=== PATIENT | male | born 1980 | race Caucasian/White ===

== ENCOUNTER → 2017-11-16 14:04 | Outpatient (CLI) | payer BC, SELFPAY | PROVIDERS: PCP Family Medicine; Visit Provider Nurse Practitioner | DX: R06.83 Snoring (principal); E66.9 Obesity, unspecified | CPT/HCPCS: 95806 ==

== ENCOUNTER → 2023-04-02 11:47 | Outpatient (CLI) | payer OTHER, SELFPAY ==
--- NOTE | 2023-04-02 11:51 | NM_ITS ---
APPROVED REPORT Exam: Nuclear Stress Test Indication: OBESITY, HTN, DM, TOB USE, C.P., SOB, PALPITATIONS, ABN EKG Patient Location: Outpatient Stress Tech: Gianna Calvin [place] Tech:Karishma Robb, ARRT RT(R)(N) Ht: 6 ft 4 in Wt: 388 lbs HR: 73 bpm BP: 129/84 mmHg BSA: 2.94 m2 TID: 1.39 BMI: 47.2 History: OBESITY, HTN, DM, TOB USE, C.P., SOB, PALPITATIONS, ABN EKG Procedure: Patient received 0.4 mg of intravenous Lexiscan, resting heart rate 73 bpm, resting blood pressure 129/84 mmHg, with Lexiscan maximum heart rate achieved was 106 bpm which is % of the maximum predicted heart rate and blood pressure was 157/95 mmHg. With Lexiscan, patient denied any complaint of chest pain. Cardiac Stress and Resting SPECT Images: Cardiac Stress and Resting SPECT images were obtained using technetium 99m Myoview 31.0 mCi stress and 10.55 mCi at rest. Resting and stress imaging in supine position demonstrate a medium sized, moderate, fixed perfusion defect in the inferior LV wall. This is no longer visualized with prone stress imaging. Findings are suggestive of diaphragmatic attenuation. There is increased transient ischemic dilatation ratio (TID 1.39), suggestive of possible multivessel disease or balanced ischemia. Gated imaging demonstrates low normal global LV systolic function. LVEF is calculated at 52%. Conclusion: Diaphragmatic attenuation is present. Increased transient ischemic dilatation ratio (TID 1.39), suggestive of possible multivessel disease or balanced ischemia. Gated imaging demonstrates low normal global LV systolic function. LVEF is calculated at 52%. Electronically signed by : Laurie Cosby MD 04/08/2023 15:59:47
--- NOTE | 2023-04-02 11:51 | CA_ITS ---
APPROVED REPORT EXAM: Comprehensive 2D, Doppler, and color-flow Echocardiogram Flatbed Owner Operator: Kendra Mendoza RVT Ht: 6 ft 4 in Wt: 388lbs BSA: 2.94 BP: 134/82 mmHg Indications: CP,ABN EKG,DEACON,OBESITY,HTN,DM,EDEMA,HLD,SMOKER TDS-PT BODY HABITUS M-Mode Dimensions RVDd 3.19 cm (0.9-2.6) LVDd 4.82 cm (3.5-5.7) LVDs 2.72 cm (3.5-5.7) IVSd 1.61 cm (0.6-1.1) PWd 0.96 cm (0.6-1.1) EF (Teich) 74.70% FS 43.60% EDV (Teich) 108.60 mL TAPSE 2.59 (<1.7) ESV (Teich) 27.50 mL LV Diastology E/A Ratio 1.45 Aortic Valve AO VTI 19.88 (18-25 cm) Mitral Valve MV A Velocity 67.00 (40-130 cm/s) Left Ventricle The left ventricle is normal size. The left ventricular systolic function is normal. The left ventricular ejection fraction is within the normal range. There is increased LV wall thickness. The septum is asynchronous. The left ventricular diastolic function is normal. LVEF is 50-55%. Right Ventricle Right ventricle is mildly dilated. The right ventricular systolic function is normal. Atria The left atrium size is normal. The right atrium size is normal. Doppler evaluation for interatrial shunt is indeterminate. Aortic Valve The aortic valve opens well. There is no aortic valvular stenosis. No aortic regurgitation is present. Mitral Valve The mitral valve is normal in structure. No evidence of mitral valve stenosis. Trace mitral valve regurgitation noted. Tricuspid Valve The tricuspid valve leaflets are thin and pliable. Trace tricuspid regurgitation. There is insufficient TR jet to estimate RVSP. Pulmonic Valve The pulmonary valve is normal in structure. Trace pulmonic regurgitation. Great Vessels The aortic root is normal in size. The ascending aorta is normal in size. IVC is normal in size and collapses >50% with inspiration. Pericardium There is no pericardial effusion. Other Information Study Quality: Technically Difficult Conclusion Technically difficult study due to poor accoustic windows. Normal biventricular systolic function. Mild RV dilation. Asynchronous septum. No significant valvular stenosis or regurgitation. Doppler evaluation for interatrial shunt is indeterminate. Electronically signed by : Laurie Cosby MD 04/10/2023 18:27:52
--- NOTE | 2023-04-02 14:00 | CA_ITS ---
APPROVED REPORT Exam: Pharmacologic Technologist: Gianna Herr, Ht: 6 ft 4 in Wt: 388 lbs BSA: 2.94 m2 HR: 74 bpm BP: 129/84 mmHg Rhythm: NSR Medical History Medications: Metformin,,,,, Metoprolol Tartrate,,,,, Ibuprofen,,,,, Saxagliptin,,,,, Lisinopril-HCTZ,,,,, Stress Test Details Test: Moi, Pharmacologic stress testing performed using 0.4 mg of regadenoson per 5 mL given IV over 10 seconds. Reason for pharmacologic stress test: physical limitation. HR Resting HR: 73 bpm Max Heart Rate (APMHR): 179 bpm Max HR Achieved: 106 bpm Target HR (85% APMHR): 152 bpm % of APMHR: 59 Recovery HR: 81 bpm BP Resting BP: 129.0/84.0 mmHg Max BP: 157.0/95.0 mmHg Recovery BP: 147.0/85.0 mmHg ECG Resting ECG: NSR, PVCs, rightward axis, poor R wave progression Stress ECG: No significant ST changes Arrhythmia: Frequent PVCs Recovery ECG: No significant ST changes Recovery Arrhythmia: Frequent PVCs Clinical Exercise duration: 04:09 min Highest Stage Achieved: Exercise capacity: 4 METs Overall Exercise Capacity for Age: Poor Stress ECG Conclusion Symptoms: Mild head discomfort. No CP. Arrhythmias/Ectopy: Frequent, isolated, uniform PVCs. ST-T Changes: No significant ST changes. Conclusion: Unremarkable Lexiscan stress. Myoview images reported separately. Test Summary REST . . . . . . . Resting REST 04:27 0.0 0.0 73 . 129/ 84 . . Stage 1 01:00 10.0 0.0 99 . . . . Stage 1 02:00 10.0 0.0 91 . 157/ 95 . . Stage 1 03:00 10.0 0.0 89 . 152/ 88 . . Stage 2 01:00 12.0 0.0 86 . . . . Stage 2 01:09 12.0 0.0 90 . 151/ 88 . Stop exercise at 04:09 RECOVERY 01:00 0.0 0.0 85 . . . . RECOVERY 02:00 0.0 0.0 85 . 152/ 93 . . RECOVERY 03:00 0.0 0.0 81 . 152/ 93 . . RECOVERY 03:16 0.0 0.0 83 . 147/ 85 . . Electronically signed by : Laurie Cosby MD 04/08/2023 15:58:07
== END ==
LOC: RAD 11:47
PROVIDERS: PCP Family Medicine; Visit Provider Nurse Practitioner
DX: R06.02 Shortness of breath (principal); R07.9 Chest pain, unspecified; R60.0 Localized edema; R94.31 Abnormal electrocardiogram [ECG] [EKG]
CPT/HCPCS: 78452; 93017; 93018; 93306; A9502; J2785

== ENCOUNTER 2023-07-23 07:52 | Day surgery (SDC) | payer OTHER, SELFPAY ==
[2023-07-23] VITALS (11 sets, daily range): BP systolic 115–163; BP diastolic 57–109; PULSE 64–74; RESP 16–20; TEMP 36.2; O2SAT 92–96; BMI 45.8
--- NOTE | 2023-07-23 07:05 | IR_ITS ---
APPROVED REPORT Patient Location: Out[facility] Equipment Operator: MIRTA Santiago RT (R) PROCEDURES Left heart catheterization Left ventriculogram Selective coronary angiogram INDICATION High risk abnormal Myoview, Angina pectoris Informed consent was obtained prior to the procedure. COMPLICATIONS NONE Estimated Blood Loss: LESS THAN 10 ML TECHNIQUE One percent lidocaine used to anesthetize the right anterior aspect of the wrist. The right radial artery was accessed via the Seldinger technique. A 6 Yi sheath was placed in the right radial artery. 2.5 mg of Verapamil, 800 mcg of nitroglycerin, 1mg Lidocaine and 5000 U Heparin were given through the arterial sheath. The papa catheter was also used to perform left heart catheterization, left ventriculogram and selective coronary angiogram. At the end of the procedure the sheath was removed good hemostasis was achieved using Traclet band, patient was transferred to the postop holding area in stable condition. ANGIOGRAPHIC RESULTS The left main artery Normal The left anterior descending artery Is a large-caliber vessel with mild diffuse 10% luminal irregularities. Initial injection demonstrated diffuse EFREN II flow which improved with subsequent injection The circumflex artery Large-caliber vessel with diffuse 10% luminal irregularities accompanied by diffuse EFREN II flow which improved with subsequent injections The right coronary artery Massively large dominant with diffuse 10% luminal irregularities accompanied by EFREN II flow which improved with subsequent injection The GRACE ventriculogram reveals Normal 65% The left ventricular end-diastolic pressure 20 to 25 mmHg IMPRESSION Mild diffuse luminal irregularities as described above Diffuse EFREN II flow in all 3 coronary arteries which improved with subsequent injection stemming from both endothelial dysfunction and elevated LVEDP Normal ejection fraction Elevated LVEDP PLAN 1. Risk factor modification 2. Weight loss exercise 3. Treatment of endothelial dysfunction 4. Recommend sleep study 5. Patient may benefit from low-dose long-acting nitrates Electronically signed by : Pancho Ordoñez MD 07/23/2023 11:12:29
[2023-07-23 08:19] LABS: Basophils # 0.1 K/mm3 (0-0.2); Eosinophils # 0.3 K/mm3 (0.0-0.4); Hematocrit 50.6 % (42.0-52.0); Hemoglobin 16.5 g/dL (14.1-18.0); Lymphocytes % 22.9 % (10-50); Mean Corpuscular HGB Conc 32.7 g/dL (31.8-35.4); Mean Corpuscular Hemoglobin 31.1 pg (27.0-31.2); Mean Platelet Volume 7.7 fl (7.4-10.4); Monocytes # 0.4 K/mm3 (0.1-1.0); Monocytes % 4.9 % (1.7-9.3); Neutrophils # 5.8 K/mm3 (1.8-7.8); Neutrophils % 68.2 % (37.0-80.0); Platelet Count 279 K/mm3 (142-424); Red Blood Count 5.32 M/mm3 (4.60-6.20); Red Cell Distribution Width 13.5 % (11.5-17.5); White Blood Count 8.6 K/mm3 (4.8-10.8)
[2023-07-23 08:36] LABS: Blood Urea Nitrogen 13 mg/dl (9-20); Calcium 9.4 mg/dl (8.4-10.2); Carbon Dioxide 28 mmol/L (22.0-30.0); Chloride 102 mmol/L (98-107); Creatinine Clearance Estimated 171 mL/min (50-200); Estimated Glomerular Filt Rate 124 ml/min (>60); GFR (African American) 150 ML/MIN (>60); Glucose 198 mg/dl (74-100); Sodium 138 mmol/L (136-145)
[2023-07-23] MEDS: 0.9 % SODIUM CHLORIDE 500 ML 25 ML IV (10:01)
[2023-07-23] MEDS: VERAPAMIL 2.5MG/ML 2ML VIAL 2.5 MG IV (10:01)
[2023-07-23] MEDS: HEPARIN 1,000 UNITS/500ML NS (CATH LAB) 3000 UNIT IV (10:01)
[2023-07-23] MEDS: NITROGLYCERIN 800MCG/8ML SYR (CATH LAB) 800 MCG IA (10:01)
[2023-07-23] MEDS: HEPARIN 1,000 UNITS/ML 10ML VIAL (CATH LAB) 10000 UNIT IV (10:01)
[2023-07-23] MEDS: LIDOCAINE 1% 10ML MDV 20 ML IJ (10:02)
[2023-07-23] MEDS: diphenhydrAMINE 50MG/ML VIAL 50 MG IV (10:02)
[2023-07-23] MEDS: MIDAZOLAM HCL 1MG/1ML 5ML VIAL 1 MG IV (10:23)
[2023-07-23] MEDS: FENTANYL 100MCG/2ML VIAL 50 MCG IV (10:23)
[2023-07-23] MEDS: IOPAMIDOL-370 (76%);100ML BOTTLE 50 ML IV (15:39)
== END 2023-07-23 13:11 | disposition home or self-care (01) ==
PROVIDERS: PCP Family Medicine; Visit Provider Internal Medicine
DX: R94.31 Abnormal electrocardiogram [ECG] [EKG] (principal); I10 Essential (primary) hypertension; R94.39 Abnormal result of other cardiovascular function study; F17.210 Nicotine dependence, cigarettes, uncomplicated; Z79.899 Other long term (current) drug therapy; I25.118 Atherosclerotic heart disease of native coronary artery with other forms of angina pectoris; Z68.42 Body mass index [BMI] 45.0-49.9, adult; E66.01 Morbid (severe) obesity due to excess calories
CPT/HCPCS: 80048; 85025; 93458; 99152; C1725; C1760; C1769; J1644; Q9967